=== PATIENT | male | born 1995 | race Caucasian/White ===

== ENCOUNTER 2019-04-27 13:54 | Emergency (ER) | payer OTHER ==
[~2019-04-27] VITALS: Ht 180.3 cm; Wt 63.5 kg
[2019-04-27 14:30] LABS: BILIRUBIN,URINE NEGATIVE (NEGATIVE); CLARITY,URINE CLEAR; COLOR,URINE YELLOW; GLUCOSE, URINE (UA) NEGATIVE (NEGATIVE); KETONES,URINE 1+ (NEGATIVE); LEUKOCYTE ESTERASE ,URINE NEGATIVE (NEGATIVE); NITRITE,URINE NEGATIVE (NEGATIVE); PH,URINE 8 (5-9); PROTEIN,URINE 1+ (NEGATIVE); UROBILINOGEN,URINE NORMAL (NORMAL)
[2019-04-27 14:39] LABS: BACTERIA,URINE NEGATIVE /HPF; SQUAMOUS EPITHELIAL CELL,UR RARE /HPF; WBC,URINE RARE /HPF
[2019-04-27 14:40] LABS: AMORPHOUS SEDIMENT,UR MOD AMOR PHOSPHATE /LPF
[2019-04-27] MEDS ORDERED: KETOROLAC 30 MG/ML VIAL IVP STA (14:45)
[2019-04-27 14:58] LABS: BASOPHILS % (AUTO) 0 % (0-10); EOSINOPHILS # (AUTO) 0.1 10^3/uL (0.0-0.3); EOSINOPHILS % (AUTO) 1 % (0-10); HEMATOCRIT 40 % (40-54); HEMOGLOBIN 13.9 G/DL (13.3-17.7); LYMPHOCYTES # (AUTO) 0.8 X 10^3 (1.0-4.0); LYMPHOCYTES % (AUTO) 12 % (12-44); MEAN CORPUSCULAR HEMOGLOBIN 30 PG (25-34); MEAN CORPUSCULAR HGB CONC 35 G/DL (32-36); MEAN CORPUSCULAR VOLUME 88 FL (80-99); MEAN PLATELET VOLUME 10.6 FL (7.4-10.4); MONOCYTES # (AUTO) 0.3 X 10^3 (0.0-1.0); MONOCYTES % (AUTO) 5 % (0-12); NEUTROPHILS # (AUTO) 5.1 X 10^3 (1.8-7.8); NEUTROPHILS % (AUTO) 82 % (42-75); PLATELET COUNT 176 10^3/uL (130-400); RED CELL DISTRIBUTION WIDTH 12.3 % (10.0-14.5); WHITE BLOOD COUNT 6.3 10^3/uL (4.3-11.0)
--- NOTE | 2019-04-27 15:00 | ED Abdominal Pain ---
General Chief Complaint: Abdominal/GI Problems Stated Complaint: L SIDE ABD PAIN Nursing Triage Note: PT AMB TO TRIAGE WITH COMPLAINT OF LEFT SIDED ABD PAIN THAT STARTED THIS MORNING AROUND 0730. STATES PAIN IS INTERMITTENT. LAST BM WAS YESTERDAY. STATES NORMAL FOR HIM. Sepsis Screen: No Definite Risk History of Present Illness Date Seen by Provider: Apr 27, 2019 Time Seen by Provider: 14:00 Initial Comments 23-year-old male presents for left abdominal and flank pain. Patient reports the pain Started earlier today. He was able to eat both breakfast and lunch with no nausea or vomiting. No previous similar symptoms. He has taken Tylenol for the pain with minimal improvement. He denies any injuries. He is working at a [employer] this week. He reports having adequate fluid intake. Timing/Duration: 4-6 Hours Severity/Quality: Moderate Location: LLQ, Flank Associated Symptoms: Denies Symptoms Allergies and Home Medications Allergies Coded Allergies: No Known Drug Allergies (Unverified , 04/27/19) Home Medications Hydrocodone Bit/Acetaminophen 1 Tab Tab, 1 EACH PO Q6H PRN for PAIN-MODERATE Prescribed by: YEYO GAN on 04/27/191709 Ondansetron HCl 8 Mg Tablet, 8 MG PO Q8H PRN for NAUSEA/VOMITING-1ST LINE Prescribed by: YEYO GAN on 04/27/19 1710 Patient Home Medication List Home Medication List Reviewed: Yes Review of Systems Review of Systems Constitutional: no symptoms reported, see HPI Gastrointestinal: See HPI, Abdominal Pain All Other Systems Reviewed Negative Unless Noted: Yes Past Ztmkzrg-Cxplis-Yqcyng Hx Past Med/Social Hx: Reviewed Nursing Past Med/Soc Hx Patient Social History Alcohol Use: Denies Use Recreational Drug Use: No Smoking Status: Never a Smoker Recent Foreign Travel: No Contact w/Someone Who Travel: No Recent Infectious Disease Expo: No Recent Hopitalizations: No Immunizations Up To Date Tetanus Booster (TDap): Unknown PED Vaccines UTD: Yes Seasonal Allergies Seasonal Allergies: No Past Medical History Surgeries: Yes Abdominal, Tonsillectomy Respiratory: No Cardiac: No Neurological: No Genitourinary: No Gastrointestinal: Yes Abdominal Hernia Musculoskeletal: No Endocrine: No HEENT: No Cancer: No Psychosocial: No Integumentary: No Blood Disorders: No Physical Exam Vital Signs Vital Signs - First Documented 04/27/19 04/27/19 13:58 17:15 Temp 97.9 Pulse 64 Resp 17 B/P (MAP) 110/60 (77) Pulse Ox 98 O2 Delivery Room Air Capillary Refill : Less Than 3 Seconds Height/Weight/BMI Height: 5'11.00" Weight: 140lbs. oz. 63.225477ws; BMI Method:Stated General Appearance: WD/WN, no apparent distress HEENT: PERRL/EOMI, normal ENT inspection, TMs normal, pharynx normal Neck: non-tender, full range of motion, supple, normal inspection Respiratory: chest non-tender, lungs clear, normal breath sounds Cardiovascular: normal peripheral pulses, regular rate, rhythm, no murmur Gastrointestinal: normal bowel sounds, soft, tenderness (left lower quadrant and flank) Extremities: normal range of motion, non-tender, normal inspection, normal capillary refill Back: CVA tenderness (L) Neurologic/Psychiatric: no motor/sensory deficits, alert, normal mood/affect, oriented x 3 Skin: normal color, warm/dry Progress/Results/Core Measures Results/Orders Lab Results Laboratory Tests Test 04/27/19 14:20 04/27/19 14:50 Range/Units Urine Color YELLOW Urine Clarity CLEAR Urine pH 8 5-9 Urine Specific [place] 1.015 L 1.016-1.022 Urine Protein 1+ H NEGATIVE Urine Glucose (UA) NEGATIVE NEGATIVE Urine Ketones 1+ H NEGATIVE Urine Nitrite NEGATIVE NEGATIVE Urine Bilirubin NEGATIVE NEGATIVE Urine Urobilinogen NORMAL NORMAL MG/DL Urine Leukocyte Esterase NEGATIVE NEGATIVE Urine RBC (Auto) NEGATIVE NEGATIVE Urine RBC NONE /HPF Urine WBC RARE /HPF Urine Squamous Epithelial Cells RARE /HPF Urine Crystals PRESENT H /LPF Urine Amorphous Sediment MOD COYR PHOSPHATE H /LPF Urine Bacteria NEGATIVE /HPF Urine Casts NONE /LPF Urine Mucus NEGATIVE /LPF Urine Culture Indicated NO White Blood Count 6.3 4.3-11.0 10^3/uL Red Blood Count 4.57 4.35-5.85 10^6/uL Hemoglobin 13.9 13.3-17.7 G/DL Hematocrit 40 40-54 % Mean Corpuscular Volume 88 80-99 FL Mean Corpuscular Hemoglobin 30 25-34 PG Mean Corpuscular Hemoglobin Concent 35 32-36 G/DL Red Cell Distribution Width 12.3 10.0-14.5 % Platelet Count 176 130-400 10^3/uL Mean Platelet Volume 10.6 H 7.4-10.4 FL Neutrophils (%) (Auto) 82 H 42-75 % Lymphocytes (%) (Auto) 12 12-44 % Monocytes (%) (Auto) 5 0-12 % Eosinophils (%) (Auto) 1 0-10 % Basophils (%) (Auto) 0 0-10 % Neutrophils # (Auto) 5.1 1.8-7.8 X 10^3 Lymphocytes # (Auto) 0.8 L 1.0-4.0 X 10^3 Monocytes # (Auto) 0.3 0.0-1.0 X 10^3 Eosinophils # (Auto) 0.1 0.0-0.3 10^3/uL Basophils # (Auto) 0.0 0.0-0.1 10^3/uL Sodium Level 138 135-145 MMOL/L Potassium Level 3.9 3.6-5.0 MMOL/L Chloride Level 104 98-107 MMOL/L Carbon Dioxide Level 25 21-32 MMOL/L Anion Gap 9 5-14 MMOL/L Blood Urea Nitrogen 15 7-18 MG/DL Creatinine 1.10 0.60-1.30 MG/DL Estimat Glomerular Filtration Rate > 60 BUN/Creatinine Ratio 14 Glucose Level 116 H 70-105 MG/DL Calcium Level 9.5 8.5-10.1 MG/DL Corrected Calcium 9.1 8.5-10.1 MG/DL Total Bilirubin 1.7 H 0.1-1.0 MG/DL Aspartate Amino Transf (AST/SGOT) 25 5-34 U/L Alanine Aminotransferase (ALT/SGPT) 24 0-55 U/L Alkaline Phosphatase 78 40-136 U/L Total Protein 7.1 6.4-8.2 GM/DL Albumin 4.5 3.2-4.5 GM/DL My Orders Orders - YEYO GAN Ua Culture If Indicated (04/27/19 14:22) Cbc With Automated Diff (04/27/19 14:44) Comprehensive Metabolic Panel (04/27/19 14:44) Ketorolac Injection (Toradol Injection) (04/27/19 14:45) Ed Iv/Invasive Line Start (04/27/19 15:06) Ns Iv 1000 Ml (Sodium Chloride 0.9%) (04/27/19 15:06) Hyoscyamine Sl Tablet (Levsin Sl Tablet) (04/27/19 15:15) Ct Abd/Pelvis Wo(Kidney Stone) (04/27/19 16:01) Medications Given in ED Current Medications Medications Dose Ordered Sig/Sajan Route Start Time Stop Time Status Last Admin Dose Admin Hyoscyamine Sulfate 0.125 mg ONCE ONCE SL 04/27/19 15:15 04/27/19 15:16 DC 04/27/19 15:11 0.125 MG Vital Signs/I&O 04/27/19 04/27/19 13:58 17:15 Temp 97.9 Pulse 64 57 Resp 17 18 B/P (MAP) 110/60 (77) 110/48 (68) Pulse Ox 98 98 O2 Delivery Room Air Room Air Blood Pressure Mean: 77 Progress Progress Note : Time: 14:00 Progress Note Patient seen and evaluated, will obtain UA. 1430 normal saline 1 L IV, Toradol 30 mg IV for pain. Patient continues to deny nausea or vomiting. 1515 Will obtain CBC and CMP, CT abdomen for kidney stone. 1630 questionable 2.4 mm calcification adjacent to or in the left ureter, nonobstructing. No dilation of the left ureter. Discussed these results with the patient and his family. We'll treat for urolithiasis with pain medication, increased oral hydration, and nausea medicine if needed. Patient report improvement in symptoms. To follow-up with his primary care provider or have referral to urology as needed. Discharge instructions and return precautions reviewed. All questions answered. Diagnostic Imaging Diagonstic Imaging: CT Plain Films/CT/US/NM/MRI: abdomen, pelvis Comments NAME: TRAVIS PEREA [facility] REC#: [id number] PT STATUS: REG ER : 1995 PHYSICIAN: YEYO GAN ADMIT DATE: 04/27/19/ER Draft Date of Exam:04/27/19 CT ABD/PELVIS WO(KIDNEY STONE) PROCEDURE: CT urinary tract, rule out kidney stone. TECHNIQUE: Multiple contiguous axial images were obtained through the abdomen and pelvis without the use of intravenous contrast. Auto Exposure Controls were utilized during the CT exam to meet ALARA standards for radiation dose reduction. INDICATION: Left-sided pain. COMPARISON: There are no prior studies available for comparison. FINDINGS: The images through the low pelvis do show a small 2.4 mm calcification on the left. This is not clearly within the left ureter. The left ureter itself does not seem to be dilated, and there is no evidence for obstruction of the left collecting system. There is no sign of nephrolithiasis or urolithiasis on the right either. The urinary bladder is grossly unremarkable. There is no pelvic mass or free fluid collection evident. The appendix was not well visualized, but there are no indirect signs of acute appendicitis. The prostate gland does not appear to be enlarged. The liver, spleen, pancreas, adrenals, gallbladder, aorta, and inferior vena cava are unremarkable for an acute abnormality. The stomach is filled with particulate matter and consequently difficult to assess. The lung bases are clear. IMPRESSION: 1. There is a small calcification low in the pelvis on the left, but this is not clearly within the left ureter. There is no sign of obstruction of the left collecting system. 2. There is no acute abnormality of the abdomen or pelvis noted. Dictated on workstation # [id number] Dict: 04/27/19 1639 Trans: 04/27/19 1646 Reviewed: Reviewed by Me Departure Impression Primary Impression: Abdominal pain Qualified Codes: R10.32 - Left lower quadrant pain Additional Impression: Urolithiasis Qualified Codes: N20.1 - Calculus of ureter Disposition: HOME, SELF-CARE Condition: Improved Departure-Patient Inst. Decision time for Depature: 16:30 Referrals: NO,LOCAL PHYSICIAN (PCP/Family) Primary Care Physician Patient Instructions: How to Strain Your Urine, Kidney Stones (DC) Add. Discharge Instructions: You may take ibuprofen 600 mg every 8 hours. Use the prescription pain medicine as directed. Activity as tolerated. Follow-up with the nurse practitioner to [place] [facility] if symptoms are not improving or worsen, they can also make referral to urology if needed. Strain your urine as directed. Use the Zofran every 6-8 hours as needed for nausea or vomiting. Return to emergency department for new, urgent health care needs. All discharge instructions reviewed with patient and/or family. Voiced understanding. Scripts Ondansetron HCl (Zofran) 8 Mg Tablet 8 MG PO Q8H PRN for NAUSEA/VOMITING-1ST LINE, #6 TAB 0 Refills Prov: YEYO GAN 04/27/19 Hydrocodone Bit/Acetaminophen (Hydrocodone/Acetaminophen 5/325mg Tablet) 1 Tab Tab 1 EACH PO Q6H PRN for PAIN-MODERATE MDD 10, #10 TAB 0 Refills Prov: YEYO GAN 04/27/19 YEYO GAN Apr 27, 2019 15:00
[2019-04-27] MEDS ORDERED: NS IV 1000 ML 1,000 ML IV SCH (15:06)
[2019-04-27] MEDS ORDERED: HYOSCYAMINE 0.125 MG (LEVSIN) TAB SL ONE (15:15)
[2019-04-27 15:16] LABS: ALANINE AMINOTRANSFERASE 24 U/L (0-55); ALBUMIN 4.5 GM/DL (3.2-4.5); ALKALINE PHOSPHATASE 78 U/L (40-136); BILIRUBIN,TOTAL 1.7 MG/DL (0.1-1.0); BUN/CREATININE RATIO 14; CALCIUM 9.5 MG/DL (8.5-10.1); CARBON DIOXIDE 25 MMOL/L (21-32); CHLORIDE 104 MMOL/L (98-107); GFR ESTIMATED > 60; GLUCOSE 116 MG/DL (70-105); POTASSIUM 3.9 MMOL/L (3.6-5.0); SODIUM 138 MMOL/L (135-145); TOTAL PROTEIN 7.1 GM/DL (6.4-8.2)
--- NOTE | 2019-04-27 16:47 | Diagnostic Imaging Report ---
PROCEDURE: CT urinary tract, rule out kidney stone. TECHNIQUE: Multiple contiguous axial images were obtained through the abdomen and pelvis without the use of intravenous contrast. Auto Exposure Controls were utilized during the CT exam to meet ALARA standards for radiation dose reduction. INDICATION: Left-sided pain. COMPARISON: There are no prior studies available for comparison. FINDINGS: The images through the low pelvis do show a small 2.4 mm calcification on the left. This is not clearly within the left ureter. The left ureter itself does not seem to be dilated, and there is no evidence for obstruction of the left collecting system. There is no sign of nephrolithiasis or urolithiasis on the right either. The urinary bladder is grossly unremarkable. There is no pelvic mass or free fluid collection evident. The appendix was not well visualized, but there are no indirect signs of acute appendicitis. The prostate gland does not appear to be enlarged. The liver, spleen, pancreas, adrenals, gallbladder, aorta, and inferior vena cava are unremarkable for an acute abnormality. The stomach is filled with particulate matter and consequently difficult to assess. The lung bases are clear. IMPRESSION: 1. There is a small calcification low in the pelvis on the left, but this is not clearly within the left ureter. There is no sign of obstruction of the left collecting system. 2. There is no acute abnormality of the abdomen or pelvis noted. Dictated by: Dictated on workstation # [id number]
[2019-04-27] MEDS ORDERED: ACHD5005 PO (17:10)
[2019-04-27] MEDS ORDERED: ONDA8TAB6 PO (17:10)
[2019-04-27 17:15] VITALS: BP 110/48
== END 2019-04-27 17:15 | disposition home or self-care (01) ==
LOC: EDUNIT# 13:54 → ER 13:56
DX: N20.1 Calculus of ureter (principal); Z90.89 Acquired absence of other organs; Z87.19 Personal history of other diseases of the digestive system
CPT/HCPCS: 36415; 74176; 80053; 81000; 85025

== ENCOUNTER → 2019-05-04 | Outpatient (CLI) | payer OTHER ==
[~2019-05-04] MED LIST: ACHD5005 PO; ONDA8TAB6 PO
--- NOTE | 2019-05-04 13:44 | Diagnostic Imaging Report ---
INDICATION: Left-sided stones. COMPARISON: Correlation is made with the recent CT from 04/27/2019. FINDINGS: The bowel gas pattern is unremarkable. Left pelvic calcification is seen, likely accounting for the calcification on the recent CT. It is uncertain if this represents a phlebolith versus distal ureteric calculus. This is somewhat laterally located for a ureteric calculus. No other suspicious radiopacities are identified. IMPRESSION: Left pelvic ossification, as described. Dictated by: Dictated on workstation # [id number]
== END ==
LOC: RAD 13:16
PROVIDERS: ATTEND Urology
DX: N20.1 Calculus of ureter (principal)
CPT/HCPCS: 74018

== ENCOUNTER → 2019-05-18 | Outpatient (CLI) | payer OTHER ==
--- NOTE | 2019-05-18 14:42 | Diagnostic Imaging Report ---
PROCEDURE: CT abdomen and pelvis without contrast. TECHNIQUE: Multiple contiguous axial images were obtained through the abdomen and pelvis without the use of intravenous contrast. Auto Exposure Controls were utilized during the CT exam to meet ALARA standards for radiation dose reduction. INDICATION: Flank pain. COMPARISON: 04/27/2019. FINDINGS: The heart size is normal. The lungs are clear. The liver is normal in size without focal lesions. The gallbladder is contracted. There is no biliary ductal dilatation. The spleen is normal. The pancreas and adrenal glands are unremarkable. The kidneys are normal. Specifically, there is no evidence of significant nephrolithiasis or obstructive uropathy. The aorta is nonaneurysmal. The bowel gas pattern is nonspecific. There is no free air. There is no ascites. There are no focal inflammatory changes. The bladder is normal. There is an unchanged calcic phlebolith in the left pelvis. There appears to be a trace amount of free pelvic fluid. The osseous structures are unremarkable. IMPRESSION: Unremarkable noncontrast CT of the abdomen and pelvis. Specifically, there is no evidence of obstructive uropathy. The small calcification seen in the left hemipelvis is thought to be a phlebolith. Dictated by: Dictated on workstation # [id number]
== END ==
LOC: RAD 12:43
PROVIDERS: ATTEND Urology
DX: N20.1 Calculus of ureter (principal)
CPT/HCPCS: 74176